=== PATIENT | male | born 1980 | race Caucasian/White ===

== ENCOUNTER 2018-01-16 17:15 | Emergency (ER) | payer SELFPAY ==
[~2018-01-16] VITALS: Ht 190.5 cm; Wt 81.8 kg
[2018-01-16 17:19] VITALS: BP 118/69; TEMP 99.5
[2018-01-16] MEDS ORDERED: CEPHALEXIN500 M1 PO (18:35)
[2018-01-16 18:44] VITALS: PULSE 71
== END 2018-01-16 18:44 | disposition home or self-care (01) ==
LOC: COL.ER 17:15
DX: S61.211A Laceration without foreign body of left index finger without damage to nail, initial encounter (principal); Z87.81 Personal history of (healed) traumatic fracture; W22.8XXA Striking against or struck by other objects, initial encounter; Y92.89 Other specified places as the place of occurrence of the external cause; Y99.0 Civilian activity done for income or pay